=== PATIENT | female | born 1965 | race Caucasian/White ===

== ENCOUNTER 2019-06-06 15:21 | Emergency (ER) | payer OTHER, MEDICAID ==
[~2019-06-06] VITALS: Ht 157.5 cm; Wt 72.7 kg
[~2019-06-06 15:21] MED LIST: ACET650S14 PR; AUD NEB; AZIT250T9 PO; CEFT1FRO3 IVPB; FERR-89 PO; PANT40TA25 PO; PERCT PO; SIMV-260 PO; TUSSI5L PO; [UNRECOGNIZED DRUG - CODE] PO
[2019-06-06] MEDS ORDERED: IBUPROFEN 600 MG TABLET PO ONE (18:00)
[2019-06-06] MEDS ORDERED: LIDOCAINE 5% TRANSDERMAL PATCH TD ONE (18:00)
[2019-06-06 18:12] VITALS: BP 125/84
== END 2019-06-06 18:17 | disposition home or self-care (01) ==
LOC: EMS 15:22
DX: M25.551 Pain in right hip (principal); M54.5 Low back pain; E78.00 Pure hypercholesterolemia, unspecified; Z90.710 Acquired absence of both cervix and uterus; Z98.51 Tubal ligation status; Z98.890 Other specified postprocedural states; W01.0XXA Fall on same level from slipping, tripping and stumbling without subsequent striking against object, initial encounter; Y93.89 Activity, other specified; Y92.091 Bathroom in other non-institutional residence as the place of occurrence of the external cause; Y99.8 Other external cause status
CPT/HCPCS: 72100; 73502